=== PATIENT | male | born 1950 | race Two or more races ===

== ENCOUNTER 2025-02-05 16:26 | Emergency (ER) | payer OTHER ==
[~2025-02-05] VITALS: Ht 170.2 cm; Wt 143.0 kg
[2025-02-05 16:28] VITALS: TEMP 98.2
[2025-02-05 17:16] LABS: Hematocrit 53.3 % (41.0-53.0); Hemoglobin 18.4 g/dL (13.5-17.5); Mean Corpuscular Hemoglobin 30.1 pg (28.0-32.0); Mean Corpuscular Volume 87.2 fL (80.0-100.0); Nucleated Red Blood Cells % 1.1 %
--- NOTE | 2025-02-05 17:25 | ED.PDOC ---
History of Present Illness HPI Comments 74 yo M w/ PMH of hemorrhoids presenting for evaluation of increased rectal bleeding noted today. Pt takes no blood thinners. Has no abdominal pain with this. No fevers. Has had this issue for "a long time". Last saw his GI doctor 3 weeks ago. They told him they would not intervene on his hemorrhoids until he had a colonoscopy. Pt has never had a colonoscopy before. He declined referral for colonoscopy at that time because he wasn't having rectal bleeding at that time. Typically uses anusol. He states he had some diarrhea today which irritated his hemorrhoids. Then started having rectal bleeding afterwards. Went to urgent care before coming to the ER. They stated they would put in an e xpedited referral for the colonoscopy. Chief Complaint: GI Bleed Time Seen by MD: 16:27 Allergies: Coded Allergies: NO KNOWN ALLERGIES (Unverified , 02/05/25) Information Source: Patient Mode of Arrival: Ambulatory Severity: Moderate Timing: Days Duration: Days Past Medical History PAST MEDICAL HISTORY: Denies Surgical History: Denies all surgeries Family History Family History: Reviewed,noncontributory to illness Gastrointestinal: reports: diarrhea, rectal bleeding Physical Exam General Appearance: Normal HEENT: NOT DONE Neck: NOT DONE Respiratory: Normal Breath Sounds Cardiovascular: Normal Peripheral Pulses, Regular Rate/Rhythm Breast Exam: Deferred Gastrointestinal: Non Tender, Other (+External hemorrhoid visualized, non- thrombosed, underwear soiled with small amount of blood, no active bleeding; no palpable fluctuance that would suggest abscess) Genitalia: Deferred Pelvic: Deferred Rectal: Blood streaked stool Extremities: NOT DONE Neurologic: solutions consultant II-XII nml as Tested, No Motor Deficits Cerebellar Function: Normal Reflexes: NOT DONE Skin: Normal Color Lymphatic: NOT DONE Was a procedure done? Was a procedure done?: No Differential Dx Considerations may include: External Hemorrhoids vs Internal Hemorrhoids vs Diverticular Bleeding vs Perirectal Abscess X-Ray, Labs, Meds, VS Vital Signs Date Time Temp Pulse Resp B/P (MAP) Pulse Ox O2 Delivery O2 Flow Rate FiO2 02/05/25 16:28 98.2 88 16 108/63 94 98.2 Lab Test 02/05/25 16:55 Range/Units White Blood Count 17.8 H 4.4-10.8 10^3/uL Red Blood Count 6.11 H 4.5-5.90 10^6/uL Hemoglobin 18.4 H 13.5-17.5 g/dL Hematocrit 53.3 H 41.0-53.0 % Mean Corpuscular Volume 87.2 80.0-100.0 fL Mean Corpuscular Hemoglobin 30.1 28.0-32.0 pg Mean Corpuscular Hemoglobin Concent 34.6 32.0-36.0 g/dL Red Cell Distribution Width 14.4 H 11.8-14.3 % Platelet Count 316 140-450 10^3/uL Mean Platelet Volume 6.8 L 6.9-10.8 fL Neutrophils (%) (Auto) 77.7 37.0-80.0 % Lymphocytes (%) (Auto) 12.1 10.0-50.0 % Monocytes (%) (Auto) 9.4 0.0-12.0 % Eosinophils (%) (Auto) 0.4 0.0-7.0 % Basophils (%) (Auto) 0.4 0.0-2.0 % Neutrophils # (Auto) 13.8 H 1.6-8.6 10 ^3/uL Lymphocytes # (Auto) 2.2 0.4-5.4 10 ^3/uL Monocytes # (Auto) 1.7 H 0-1.3 10 ^3/uL Eosinophils # (Auto) 0.1 0-0.8 10 ^3/uL Basophils # (Auto) 0.1 0-0.2 10 ^3/uL Nucleated Red Blood Cells 1.1 % Sodium Level 141 136-145 mmol/L Potassium Level 3.6 3.5-5.1 mmol/L Chloride Level 101 98-107 mmol/L Carbon Dioxide Level 30 20-31 mmol/L Anion Gap 10 5-15 Blood Urea Nitrogen 15 9-23 mg/dL Creatinine 1.57 H 0.700-1.30 mg/dL Glomerular Filtration Rate Calc 46 >90 mL/min BUN/Creatinine Ratio 9.6 L 10.0-20.0 Serum Glucose 97 74-106 mg/dL Calcium Level 9.9 8.7-10.4 mg/dL Time of 1ST Reevaluation: 17:18 Reevaluation 1ST: Unchanged Time of 2ND Reevaluation: 18:31 (Pt with no increased rectal bleeding at this time) Patient Education/Counseling: Diagnosis, Treatment, Need For Follow Up Family Education/Counseling: Diagnosis, Treatment, Need For Follow Up SEPSIS Sepsis Screen Date sepsis recognized/suspect: Feb 05, 2025 Time Sepsis recognized/suspect: 1628 Recent Procedure: No On Antibiotic Therapy: No Respiratory Rate >20: No Heart Rate >90: No Temp<36 C (96.8 F) or >38.3 C: No SBP <90 or MAP <65 mmHG: No New Acute Mental Status Change: No Is the patient on CPAP, BIPAP,: No Vital Signs Date Time Temp Pulse Resp B/P (MAP) Pulse Ox O2 Delivery O2 Flow Rate FiO2 02/05/25 16:28 98.2 88 16 108/63 94 98.2 Laboratory Tests Test 02/05/25 16:55 White Blood Count 17.8 10^3/uL (4.4-10.8) H Departure 1 Departure Time of Disposition: 17:19 (74 yo M w/ known history of external hemorrhoids presenting for local irritation after he had diarrhea today. Upon my examination pt is not having any active/brisk rectal bleeding identified. No evidence of thrombosed hemorrhoid that would require emergent intervention. Pt has no other surrounding changes to suggest perirectal abscess. Pt has already seen GI recently, recommended that he call their office to let them know that he would now like that referral for an outpatient colonoscopy. Given the patient's age and report of increased rectal bleeding basic labs were obtained. CBC with no evidence of critical anemia or thrombocytopenia. Does not require serial CBCs given no continued brisk rectal bleeding. Metabolic panel with no evidence of acute electrolyte abnormalities. Pt is hemodynamically stable here. Pt advised on symptomatic management at home including sitz baths. Seems stable for discharge for further outpatient management with strict return precautions if symptoms progress.) Impression: Primary Impression: Rectal bleeding Additional Impression: External hemorrhoid, bleeding Disposition: HOME / SELF CARE / HOMELESS Condition: Stable Additional Instructions: Your blood counts today including your hemoglobin (red blood cells) are completely within normal limits. Continue to use anusol, use wet wipes when you have a bowel movement and perform sitz baths for symptomatic management. Please call your GI specialist to request a colonoscopy referral for further definitive management of your hemorrhoids Discharged With: Self, Relative Critical Care Note Critical Care Time?: No Stability Stability form required: DONG Palomo MD Feb 05, 2025 17:25
[2025-02-05 17:27] LABS: Anion Gap 10 (5-15); Carbon Dioxide 30 mmol/L (20-31); Chloride 101 mmol/L (98-107); Potassium 3.6 mmol/L (3.5-5.1); Sodium 141 mmol/L (136-145)
[2025-02-05 17:28] LABS: Calcium 9.9 mg/dL (8.7-10.4)
[2025-02-05 17:33] LABS: BUN/Creatinine Ratio 9.6 (10.0-20.0); Blood Urea Nitrogen 15 mg/dL (9-23); Glucose 97 mg/dL (74-106)
[2025-02-05 19:07] VITALS: BP 122/77; PULSE 78; RESP 18; O2SAT 95
== END 2025-02-05 19:20 | disposition home or self-care (01) ==
LOC: ER 16:26
DX: K62.5 Hemorrhage of anus and rectum (principal); K64.4 Residual hemorrhoidal skin tags; Z87.19 Personal history of other diseases of the digestive system
CPT/HCPCS: 36415; 80048; 85025